=== PATIENT | female | born 1960 | race African-American/Black ===

== ENCOUNTER 2016-10-22 19:43 | Emergency (ER) | payer OTHER ==
[~2016-10-22] VITALS: Ht 165.1 cm; Wt 90.7 kg
[~2016-10-22 19:43] MED LIST: ASPIR 8181 MG PO; ASPIRIN325 PO; ATORVASTATIN CA40 MG PO; GLYXAMBI 10 MG1 EACH PO; HUMALOG100 UNIT/1 SUBQ; HYDROCODONE-AP1 EA11 PO; HYDROCODONE-AP1 EAC6 PO; LANTUS100 UNIT/M SUBQ; LISINOPRIL10 MG PO; LYRICA150 MG PO; NABUMETONE 750750 M1 PO; NORCO 5-325 TA1 EACH PO; WHEELCHAIR1 EACH MC; ZETIA10 MG PO
[2016-10-22] MEDS ORDERED: CYCLOBENZAPRINE5 MG PO (22:35)
[2016-10-22] MEDS ORDERED: NORCO 5-325 TA1 EACH PO (22:38)
== END 2016-10-22 23:43 | disposition home or self-care (01) ==
LOC: ER 19:43
DX: S62.112A Displaced fracture of triquetrum [cuneiform] bone, left wrist, initial encounter for closed fracture (principal); M25.531 Pain in right wrist; M54.9 Dorsalgia, unspecified; M25.561 Pain in right knee; M25.562 Pain in left knee; E04.1 Nontoxic single thyroid nodule; E11.40 Type 2 diabetes mellitus with diabetic neuropathy, unspecified; I10 Essential (primary) hypertension; E78.00 Pure hypercholesterolemia, unspecified; Z79.4 Long term (current) use of insulin

== ENCOUNTER 2017-02-18 12:27 | Emergency (ER) | payer OTHER ==
[~2017-02-18] VITALS: Ht 165.1 cm; Wt 88.5 kg
[~2017-02-18 12:27] MED LIST changes: +CYCLOBENZAPRINE5 MG PO
[2017-02-18 13:27] LABS: ABSOLUTE NEUTROPHILS 4.9 thou/uL (1.4-8.2); BASOPHILS 0.8 % (0.0-2.0); EOSINOPHILS 2.6 % (0.0-3.0); HEMATOCRIT 38.2 % (37.0-47.0); MANUAL DIFF NO; MCH 29.9 pg (26.0-34.0); MCHC 33.9 g/dL (28.0-37.0); MCV 88.3 fL (80.0-100.0); MONOCYTES 5.9 % (1.0-8.0); PLATELET COUNT 250 thou/uL (150-400); POLYS 66.7 % (36.0-66.0); RBC 4.33 mil/uL (4.20-5.00); RDW 13.5 % (10.5-14.5); WBC 7.4 thou/uL (4.0-11.0)
[2017-02-18 13:34] LABS: CALCIUM 9.2 mg/dL (8.5-10.1); CREATININE 0.7 mg/dL (0.6-1.0); POTASSIUM 3.8 mmol/L (3.5-5.1)
[2017-02-18 13:48] LABS: ALBUMIN 3.6 g/dL (3.4-5.0); TOTAL BILIRUBIN 0.5 mg/dL (<0.1-1.0); TOTAL PROTEIN 7.5 g/dL (6.4-8.2)
[2017-02-18] MEDS ORDERED: MINOCIN100 MG PO (14:02)
[2017-02-18] MEDS ORDERED: PREDNISONE 20 M20 MG PO (14:02)
[2017-02-18] MEDS ORDERED: ZOFRAN ODT4 M1 PO (14:16)
== END 2017-02-18 14:36 | disposition home or self-care (01) ==
LOC: ER 12:27
PROVIDERS: Physician Assistant
DX: R22.0 Localized swelling, mass and lump, head (principal); T49.4X5A Adverse effect of keratolytics, keratoplastics, and other hair treatment drugs and preparations, initial encounter; T31.0 Burns involving less than 10% of body surface; T20.15XA Burn of first degree of scalp [any part], initial encounter; R10.13 Epigastric pain; E11.9 Type 2 diabetes mellitus without complications; I10 Essential (primary) hypertension; E78.00 Pure hypercholesterolemia, unspecified; Z79.4 Long term (current) use of insulin; Y92.89 Other specified places as the place of occurrence of the external cause

== ENCOUNTER 2018-11-17 10:57 | Emergency (ER) | payer OTHER ==
[~2018-11-17] VITALS: Ht 162.6 cm; Wt 83.9 kg
[~2018-11-17 10:57] MED LIST changes: +MINOCIN100 MG PO; +PREDNISONE 20 M20 MG PO; +ZOFRAN ODT4 M1 PO
[2018-11-17 12:09] VITALS: BP 146/83
== END 2018-11-18 02:02 | disposition home or self-care (01) ==
LOC: ER 10:57
DX: J32.9 Chronic sinusitis, unspecified (principal); I10 Essential (primary) hypertension; E78.00 Pure hypercholesterolemia, unspecified; E11.40 Type 2 diabetes mellitus with diabetic neuropathy, unspecified; Z79.4 Long term (current) use of insulin

== ENCOUNTER 2020-01-05 14:33 | Emergency (ER) | payer OTHER ==
[~2020-01-05] VITALS: Ht 165.1 cm; Wt 83.9 kg
[2020-01-05 16:00] VITALS: BP 119/69
[2020-01-05] MEDS ORDERED: PROMETH-CODEIN 65 ML PO (17:06)
== END 2020-01-05 16:00 | disposition home or self-care (01) ==
LOC: ER 14:33
DX: U07.1 COVID-19 (principal); R05 Cough; I10 Essential (primary) hypertension; E11.9 Type 2 diabetes mellitus without complications; E78.5 Hyperlipidemia, unspecified; Z79.4 Long term (current) use of insulin; Z79.899 Other long term (current) drug therapy